=== PATIENT | female | born 1980 | race Caucasian/White ===

== ENCOUNTER 2018-03-23 18:19 | Emergency (ER) | payer OTHER ==
[~2018-03-23] VITALS: Ht 175.3 cm; Wt 111.1 kg
[~2018-03-23 18:19] MED LIST: CIPRO250 M2 PO; CIPRO500 MG PO; CIPROFLOXACIN500 M1 PO; FLAGYL500 MG PO; FLEXERIL PO; FLOMAX0.4 MG PO; HYDROCHLOROTHIA25 M2 PO; HYDROCODONE-AP1 EAC6 PO; IBUPROFEN 600600 M1 PO; IBUPROFEN 800800 M1 PO; LISINOPRIL10 MG; MEDROLDOSEPACK PO; MIRALAX255 GM PO; NORCO 5-325 TA1 EACH PO; NORTRIPTYLINE H10 M1 PO; NORTRIPTYLINE H25 M3 PO; PEPCID20 MG PO; ZESTRIL10 MG PO; ZOFRAN ODT4 MG PO; ZOFRAN4 MG PO
[2018-03-23 18:31] VITALS: BP 148/102
== END 2018-03-23 19:14 | disposition home or self-care (01) ==
LOC: M.ERS 18:19
DX: S06.0X0A Concussion without loss of consciousness, initial encounter (principal); G43.909 Migraine, unspecified, not intractable, without status migrainosus; I10 Essential (primary) hypertension; F17.210 Nicotine dependence, cigarettes, uncomplicated; Z87.442 Personal history of urinary calculi; Z98.890 Other specified postprocedural states; Z88.8 Allergy status to other drugs, medicaments and biological substances; Z91.013 Allergy to seafood; W22.8XXA Striking against or struck by other objects, initial encounter; Y93.89 Activity, other specified; Y92.89 Other specified places as the place of occurrence of the external cause; Y99.8 Other external cause status

== ENCOUNTER 2018-06-02 09:01 | Emergency (ER) | payer OTHER ==
[~2018-06-02] VITALS: Ht 175.3 cm; Wt 110.2 kg
[2018-06-02] MEDS ORDERED: DIAZEPAM 2MG TAB2 MG PO (10:29)
[2018-06-02 10:41] VITALS: BP 133/89
== END 2018-06-02 10:42 | disposition home or self-care (01) ==
LOC: M.ERS 09:01
DX: R42 Dizziness and giddiness (principal); R11.0 Nausea; I10 Essential (primary) hypertension; G43.909 Migraine, unspecified, not intractable, without status migrainosus; F17.210 Nicotine dependence, cigarettes, uncomplicated; Z91.013 Allergy to seafood; Z88.8 Allergy status to other drugs, medicaments and biological substances

== ENCOUNTER 2018-06-18 21:01 | Emergency (ER) | payer OTHER ==
[~2018-06-18] VITALS: Ht 175.3 cm; Wt 104.3 kg
[~2018-06-18 21:01] MED LIST changes: +DIAZEPAM 2MG TAB2 MG PO
[2018-06-18] MEDS ORDERED: CLARITIN10 MG PO (21:18)
[2018-06-18] MEDS ORDERED: FISH OIL 1,001000 M2 PO (21:19)
[2018-06-18 21:40] LABS: URINE BILIRUBIN NEGATIVE (Negative); URINE BLOOD NEGATIVE (Negative); URINE CLARITY CLEAR; URINE COLOR YELLOW; URINE GLUCOSE-RANDOM NEGATIVE (Negative); URINE KETONES NEGATIVE (Negative); URINE LEUKOCYTES-REFLEX 1+ (Negative); URINE NITRITE-REFLEX NEGATIVE (Negative); URINE PROTEIN NEGATIVE (Negative); URINE SPECIFIC GRAVITY 1.025 (1.005-1.030); URINE UROBILINOGEN 0.2 E.U./dl (0.2-1.0)
[2018-06-18 21:49] LABS: MUCUS >6 Heavy strn/LPF (None Seen); SQUAMOUS >10 Many /LPF (0-3); URINE WBC-REFLEX 6-15 Few /HPF (0-5)
[2018-06-18 21:50] LABS: CASTS None Seen /LPF (None Seen); CRYSTALS None Seen /LPF (None Seen); URINE RBC 0-2 Rare /HPF (0-2)
[2018-06-18] MEDS ORDERED: BACTRIM DS TAB1 EACH PO (21:55)
[2018-06-18] MEDS ORDERED: NORCO 5-325 TA1 EACH PO (21:55)
[2018-06-18] MEDS ORDERED: MEDROLDOSEPACK PO (21:55)
[2018-06-18 22:05] VITALS: BP 119/81
== END 2018-06-18 22:05 | disposition home or self-care (01) ==
LOC: M.ERS 21:01
PROVIDERS: Physician Assistant
DX: N39.0 Urinary tract infection, site not specified (principal); I10 Essential (primary) hypertension; G43.909 Migraine, unspecified, not intractable, without status migrainosus; Z91.013 Allergy to seafood; Z88.8 Allergy status to other drugs, medicaments and biological substances; Z98.890 Other specified postprocedural states; Z87.442 Personal history of urinary calculi

== ENCOUNTER 2019-07-29 00:16 | Emergency (ER) | payer OTHER ==
[~2019-07-29] VITALS: Ht 175.3 cm; Wt 97.5 kg
[~2019-07-29 00:16] MED LIST changes: +BACTRIM DS TAB1 EACH PO; +CLARITIN10 MG PO; +FISH OIL 1,001000 M2 PO
[2019-07-29] MEDS ORDERED: HYDROCHLOROTHIA25 M2 PO (00:27)
[2019-07-29] MEDS ORDERED: TORADOL 10 MG T10 MG PO (00:38)
[2019-07-29] MEDS ORDERED: PREDNISONE50 MG PO (00:38)
[2019-07-29] MEDS ORDERED: HYDROCODON-ACE1 EAC7 PO (00:38)
[2019-07-29 00:55] VITALS: BP 135/81
== END 2019-07-29 00:55 | disposition home or self-care (01) ==
LOC: M.ERS 00:16
DX: S46.811A Strain of other muscles, fascia and tendons at shoulder and upper arm level, right arm, initial encounter (principal); I10 Essential (primary) hypertension; G43.909 Migraine, unspecified, not intractable, without status migrainosus; Z87.442 Personal history of urinary calculi; Z91.013 Allergy to seafood; Z88.8 Allergy status to other drugs, medicaments and biological substances; X58.XXXA Exposure to other specified factors, initial encounter; Y92.89 Other specified places as the place of occurrence of the external cause; Y93.89 Activity, other specified; Y99.0 Civilian activity done for income or pay